=== PATIENT | male | born 1960 | race Caucasian/White ===

== ENCOUNTER 2018-10-05 05:57 | Emergency (ER) | payer MEDICAID ==
[2018-10-05 06:12] VITALS: PULSE 70
--- NOTE | 2018-10-05 06:22 | ERPHSYRPT ---
- History of Present Illness Source: patient Exam Limitations: no limitations Patient Subjective Stated Complaint: pt is alert and oriented. pt is ambulatory with an unsteady gait. pt states that the he has had some left sided hip/lower back/buttock pain. pt denies injury. pt has a small scab over area but no discoloration, swelling, or redness noted. pt states since approx 3 weeks ago he has festus having lt lower back pain radiating down lt leg, increasing and today making it difficult to ambulate Triage Nursing Assessment: pt is alert and oriented. pt is ambulatory with an unsteady gait. pt states that the he has had some left sided hip/lower back/ buttock pain. pt denies injury. pt has a small scab over area but no discoloration, swelling, or redness noted. Timing/Duration: week(s) (3) Context: bending, lifting, twisted, turning Quality: sharpness, stabbing Hip Pain Location: hip (L) Severity of Pain-Max: moderate Severity of Pain-Current: moderate Modifying Factors: Improves With: movement Symptoms prior to fall: none Associated Symptoms: pain radiating to knees Hx Tetanus, Diphtheria Vaccination/Date Given: Yes Hx Influenza Vaccination/Date Given: No Hx Pneumococcal Vaccination/Date Given: No Immunizations Up to Date: Yes <AYDEN GRANADOS - Last Filed: 10/05/18 06:17> <TESS BENSON - Last Filed: 10/05/18 07:54> - History of Present Illness Time Seen by Provider: 10/05/18 06:17 Physician History: 58 y/o morbidly obese white male with h/o mi, cadz, defibrillator/pacemaker, lymphedema and chf presents with 3 week h/o worsening low back pain, left hip pain with radiation down left buttock to left knee posteriorly. rx for neurontin not filled because no money. pt states dr. sher was going to order xrays at next visit but his pain worse. (AYDEN GRANADOS) Allergies/Adverse Reactions: Sulfa (Sulfonamide Antibiotics) Allergy (Verified 10/05/18 06:12) Rash Home Medications: Allopurinol 100 mg [Zyloprim 100 mg] 100 mg PO DAILY 10/05/18 [History] Apixaban [Eliquis] 5 mg PO BID 10/05/18 [History] Aspirin 81 gm Chew [Baby Aspirin 81 mg Chew] 81 mg PO DAILY 10/05/18 [ History] Atorvastatin Calcium [Lipitor] 40 mg PO HS 10/05/18 [History] Metoprolol Succinate 100 mg [Toprol Xl 100 MG] 100 mg PO BID 10/05/18 [ History] Multivitamin W-Minerals/Lutein [Centrum Silver Tablet] 1 each PO DAILY 10/05/18 [History] Sacubitril/Valsartan [Entresto 24 mg-26 mg Tablet] 1 each PO BID 10/05/18 [ History] - Review of Systems Constitutional: No Symptoms Eyes: No Symptoms Ears, Nose, & Throat: No Symptoms Respiratory: No Symptoms Cardiac: No Symptoms Abdominal/Gastrointestinal: No Symptoms Genitourinary Symptoms: No Symptoms Musculoskeletal: Back Pain, Joint Pain (left hip) Skin: No Symptoms Neurological: No Symptoms Psychological: No Symptoms Endocrine: No Symptoms Hematologic/Lymphatic: No Symptoms Immunological/Allergic: No Symptoms All Other Systems: Reviewed and Negative <AYDEN GRANADOS - Last Filed: 10/05/18 06:17> - Past Medical History Pertinent Past Medical History: Yes Cardiac History: Arrhythmia, Congestive Heart Failure, Myocardial Infarction ([place] ) Respiratory History: CHF History: Renal Disease Other Medical History: a fib, lymphedema in bilat legs, moderate kidney function - hx of acute renal failure - Past Surgical History Past Surgical History: Yes Cardiac: Internal Defibrillator, Pacemaker Gastrointestinal: Cholecystectomy Other Surgical History: dialysis port placement and removal - Social History Smoking Status: Former smoker Exposure to second hand smoke: No Drug Use: none Patient Lives Alone: Yes <AYDEN GRANADOS - Last Filed: 10/05/18 06:17> - Physical Exam General Appearance: mild distress, alert, anxiety Eye Exam: PERRL/EOMI, eyes nml inspection Ears, Nose, Throat Exam: normal ENT inspection, moist mucous membranes Neck Exam: normal inspection, non-tender, supple, full range of motion Respiratory Exam: No chest tenderness Rectal Exam: not done Back Exam: decreased range of motion, muscle spasm, No CVA tenderness, No vertebral tenderness Extremity Exam: other (chronic bilat lower lymphedema and venous stasis dz) Neurologic Exam: alert, oriented x 3, cooperative, water proofer II-XII nml as tested Skin Exam: normal color, warm Lymphatic Exam: No adenopathy SpO2 Interpretation: normal SpO2: 96 O2 Delivery: Room Air <AYDEN GRANADOS - Last Filed: 10/05/18 06:17> - Nursing Vital Signs Nursing Vital Signs: Initial Vital Signs Temperature 97.6 F 10/05/18 05:58 Pulse Rate 70 10/05/18 05:58 Respiratory Rate 22 10/05/18 05:58 Blood Pressure 116/81 10/05/18 05:58 O2 Sat by Pulse Oximetry 96 10/05/18 05:58 Pain Scale Pain Intensity [Left Lower 10 Back] Pain Intensity 10 - CT Exams Lumbar Spine CT Interpretation: Discussed w/radiologist (NEGATIVE FOR FRACTURE, MILD L3-S1,S- I JOINT DEGENERATIVE CHANGES, TINY BILATERAL BILATERAL SUPERIOR ACETABULAR SPURRING) Pelvis CT Interpretation: Discussed w/radiologist (NO FRACTURE OR DISLOCATION) <TESS BENSON - Last Filed: 10/05/18 07:54> Ordered Tests: Active Orders 24 hr Category Date Time Status LUMBAR SPINE W/O [CT] Stat Exams 10/05/18 06:51 Taken PELVIS WITHOUT CONTRAST [CT] Stat Exams 10/05/18 06:38 Taken Transfer Order Routine Transfer 10/05/18 Ordered Medication Summary Discontinued Medications Generic Name Dose Route Start Last Admin Trade Name Freq PRN Reason Stop Dose Admin Orphenadrine Citrate 60 mg 10/05/18 07:21 Norflex 60 Mg/2 Ml IM 10/05/18 07:22 STAT ONE <AYDEN GRANADOS - Last Filed: 10/05/18 06:17> - Progress Progress: pain not gone completely Counseled pt/family regarding: diagnosis, need for follow-up <TESS BENSON - Last Filed: 10/05/18 07:54> - Progress Progress Note: 10/05/18 06:24 pt is transferred to dr. benson. i reviewed pt hx, condition and xrays to be followed up on. he accepts pt for transfer of care. (AYDEN GRANADOS) PHYSICAL EXAM: CHEST-CLEAR BREATH SOUNDS HEART-NORMAL S1 S2. RHYTHM REGULAR, NO MURMUR BACK: LEFT LUMBAR PARASPINAL TENDERNESS, L3-L5, MODERATE LEFT SACROILIAC TENDERNESS, TENDERNESS OVER LEFT GROIN 10/05/18 07:17, ADMINISTERED NORFLEX 60MG IM, PATIENT TOOK MOTRIN 800MG PRIOR TO ARRIVAL 10/05/18 07:22 (TESS BENSON) <AYDEN GRANADOS - Last Filed: 10/05/18 06:17> - Departure Departure Disposition: Home Critical Care Time: No <TESS BENSON - Last Filed: 10/05/18 07:54> - Departure Clinical Impression: Chronic low back pain with left-sided sciatica, DEGENERATIVE DISC DISEASE Condition: Stable Referrals: TONE CHEEK MD [Primary Care Provider] - Additional Instructions: AMBULATE USING WALKER ASSISTANCE, NONWEIGHT BEARING LEFT LOWER EXTREMITY. ULTRAM 50MG EVERY 6 HOURS FOR PAIN. CONSULT YOUR PRIMARY CARE PROVIDER FOR EVALUATION, PAIN MANAGEMENT AND PHYSICAL THERAPY. NORFLEX 100MG TWICE DAILY FOR 5 DAYS FOR MUSCLE SPASM. Prescriptions: Tramadol HCl 50 mg [Ultram 50 mg] 50 mg PO Q6HPRN PRN #16 tablet PRN Reason: Pain Orphenadrine Citrate 100 mg [Norflex 100 MG Tablet] 100 mg PO BID #10 tab
[2018-10-05] MEDS ORDERED: Norflex 60 MG/2 ML IM ONE (07:21)
[2018-10-05] MEDS ORDERED: Norflex 60 MG/2 ML ONE (07:23)
[2018-10-05 07:57] VITALS: BP 111/89; O2SAT 93
--- NOTE | 2018-10-05 09:39 | XRAY ---
Indication: Pain following fall 2 weeks ago. Multiple contiguous axial images obtained through the lumbar spine. Sagittal and coronal reformatted images obtained. Comparison: None Axial images negative for acute fracture, suspicious bony lesions, or spinal canal stenosis. Mild T11-T12 endplate spurring, mild L3-S1 broad-based disc bulge, and L5-S1 vacuum disc phenomena. Additional degenerative changes seen of both SI joints. Sagittal and coronal reformatted images demonstrates normal lumbar alignment with vertebral body heights and disc spaces maintained. No acute compression fracture or subluxation. Visualized noncontrasted soft tissues demonstrates mild diffuse scattered colonic fecal stasis, mild descending/sigmoid diverticulosis, cholecystectomy clips, and minimal scattered vascular calcifications. Impression: 1. Negative for acute fracture/subluxation. 2. Multilevel thoracolumbar and SI joint degenerative changes. 3. Incidental fecal stasis and colonic diverticulosis. CTDI 76.92
--- NOTE | 2018-10-05 09:44 | XRAY ---
Indication: Pain following fall 2 weeks ago. Multiple contiguous axial images obtained through the pelvis with special attention to the osseous structures. Sagittal and coronal reformatted images obtained. Comparison: None No acute fracture, dislocation, or suspicious bony lesions. There are degenerative changes of the visualized lower lumbar spine and both SI joints reported on CT lumbar spine of the same day. Visualized noncontrasted soft tissues demonstrates prominent bilateral inguinal lymph nodes, largest on the left measuring 2.1 x 4.9 cm presumed reactive. Also mild sigmoid diverticulosis and minimal scattered vascular calcifications. Impression: 1. Negative for acute fracture/dislocation. 2. Prominent bilateral inguinal lymph nodes presumed reactive. Malignancy not completely excluded in the right clinical setting. 3. Incidental colonic diverticulosis. CTDI 69.00
== END 2018-10-05 08:09 | disposition home or self-care (01) ==
LOC: ED 05:57
DX: M54.42 Lumbago with sciatica, left side (principal); G89.29 Other chronic pain; M51.36 Other intervertebral disc degeneration, lumbar region; I50.9 Heart failure, unspecified; I25.2 Old myocardial infarction; N28.9 Disorder of kidney and ureter, unspecified; Z95.810 Presence of automatic (implantable) cardiac defibrillator; Z79.899 Other long term (current) drug therapy
CPT/HCPCS: 72131; 72192; 96372; 99284; J2360

== ENCOUNTER 2019-05-17 13:59 | Emergency (ER) | payer MEDICAID ==
--- NOTE | 2019-05-17 14:04 | ERPHSYRPT ---
- History of Present Illness Time Seen by Provider: 05/17/19 14:04 Source: patient, EMS Exam Limitations: no limitations Physician History: This is a morbidly obese 59-year-old male who complains of chronic left hip pain. He presents to the emergency room via EMS system because of worsening pain in the left hip over the last 2 to 3 days. Patient denies trauma or fall. He does not recall slipping. Patient states it is interfering with his ability to use his walker. Patient is taking gabapentin but no other medications for pain. Method of Injury: unknown Occurred: days ago (2-3) Quality: constant, aching Severity of Pain-Max: moderate Severity of Pain-Current: moderate Lower Extremities Pain: hip: left Modifying Factors: Improves With: movement, other (Standing worsens) Associated Symptoms: none Allergies/Adverse Reactions: Sulfa (Sulfonamide Antibiotics) Allergy (Verified 05/17/19 14:09) Rash Home Medications: Apixaban [Eliquis] 5 mg PO BID 10/05/18 [History] Aspirin 81 gm Chew [Baby Aspirin 81 mg Chew] 81 mg PO DAILY 10/05/18 [ History] Atorvastatin Calcium [Lipitor] 40 mg PO HS 10/05/18 [History] Metoprolol Succinate 100 mg [Toprol Xl 100 MG] 100 mg PO BID 10/05/18 [ History] Multivitamin W-Minerals/Lutein [Centrum Silver Tablet] 1 each PO DAILY 10/05/18 [History] Sacubitril/Valsartan [Entresto 24 mg-26 mg Tablet] 1 each PO BID 10/05/18 [ History] Gabapentin 300 mg PO QID 05/17/19 [History] Potassium Chloride 10 Meq Tab* [Klor Con 10 MEQ] 10 meq PO DAILY 05/17/19 [ History] Hx Tetanus, Diphtheria Vaccination/Date Given: Yes Hx Influenza Vaccination/Date Given: No Hx Pneumococcal Vaccination/Date Given: No - Review of Systems Constitutional: No Symptoms Eyes: No Symptoms Ears, Nose, & Throat: No Symptoms Respiratory: No Symptoms Cardiac: No Symptoms Abdominal/Gastrointestinal: No Symptoms Genitourinary Symptoms: No Symptoms Musculoskeletal: Other (Left hip pain without injury or trauma) Skin: No Symptoms Neurological: No Symptoms Psychological: No Symptoms Endocrine: No Symptoms Hematologic/Lymphatic: No Symptoms Immunological/Allergic: No Symptoms All Other Systems: Reviewed and Negative - Past Medical History Pertinent Past Medical History: Yes Neurological History: No Pertinent History ENT History: No Pertinent History Cardiac History: Arrhythmia, Congestive Heart Failure, Myocardial Infarction ([place] ) Respiratory History: CHF Endocrine Medical History: No Pertinent History Musculoskeletal History: No Pertinent History GI Medical History: No Pertinent History History: Renal Disease Psycho-Social History: No Pertinent History Male Reproductive Disorders: No Pertinent History Other Medical History: a fib, lymphedema in bilat legs, moderate kidney function - hx of acute renal failure - Past Surgical History Past Surgical History: Yes Cardiac: Internal Defibrillator, Pacemaker Gastrointestinal: Cholecystectomy Genitourinary: No Pertinent History Musculoskeletal: No Pertinent History Male Surgical History: No Pertinent History Other Surgical History: dialysis port placement and removal - Social History Smoking Status: Former smoker Exposure to second hand smoke: No Drug Use: none Patient Lives Alone: Yes - Nursing Vital Signs Nursing Vital Signs: Initial Vital Signs Temperature 97.8 F 05/17/19 14:00 Pulse Rate 71 05/17/19 14:00 Respiratory Rate 22 05/17/19 14:00 Blood Pressure 112/76 05/17/19 14:00 O2 Sat by Pulse Oximetry 96 05/17/19 14:00 Pain Scale Pain Intensity 8 - Physical Exam General Appearance: no apparent distress, alert, anxiety, obese Eyes, Ears, Nose, Throat Exam: normal ENT inspection, moist mucous membranes Neck Exam: normal inspection, non-tender, supple, full range of motion Cardiovascular/Respiratory Exam: No chest non-tender Gastrointestinal/Abdominal Exam: No non-tender Back Exam: normal inspection, normal range of motion, No CVA tenderness, No vertebral tenderness Hips Exam: right: non-tender, left: normal inspection, normal range of motion, no evidence of injury, pain Legs Exam: bilateral leg: non-tender, normal inspection, normal range of motion , no evidence of injury Knees Exam: bilateral knee: non-tender, normal inspection, normal range of motion, no evidence of injury Ankle Exam: bilateral ankle: non-tender, normal inspection, normal range of motion, no evidence of injury Foot Exam: bilateral foot: non-tender, normal inspection, normal range of motion , no evidence of injury Neuro/Tendon Exam: normal sensation, normal motor functions Mental Status Exam: alert, oriented x 3, cooperative Skin Exam: normal color, warm, dry SpO2 Interpretation: normal O2 Delivery: Room Air - Course Nursing assessment & vital signs reviewed: Yes Ordered Tests: Active Orders 24 hr Category Date Time Status HIP UNI (2V) INCL PEL IF DONE Stat Exams 05/17/19 14:17 Completed - Progress Progress: pain not gone completely, re-examined Progress Note: 05/17/19 15:30 The x-ray of the pelvis and left hip reveals no acute fracture or dislocation Counseled pt/family regarding: diagnosis, need for follow-up, rad results - Departure Departure Disposition: Home Clinical Impression: Left hip pain Condition: Stable Critical Care Time: No Referrals: VICKI ARBOLEDA DO [Primary Care Provider] - Additional Instructions: Take your medication as prescribed. Follow-up with Dr. Ha's office on Monday by phone to make arrangements for an appointment. Monitor your blood sugar closely while taking the steroid. Prescriptions: Oxycodone HCl/Acetaminophen [Percocet 5-325 mg Tablet] 1 each PO Q8H PRN PRN #6 tablet MDD 3 PRN Reason: Pain Prednisone 10 mg [Deltasone 10 mg] 10 mg PO BID #6 tablet
--- NOTE | 2019-05-17 15:26 | XRAY ---
Exam: Left hip films including AP film of the pelvis from 05/17/2019. Comparison: CT of the pelvis without IV contrast from 10/05/2018. Indication: Morbidly obese 59-year-old male complains of pain. Findings: AP film of the pelvis and coned-down AP and frog-leg lateral views of the left hip were obtained. I see no acute fracture or dislocation of the left hip. The hip joint spaces are fairly well-maintained bilaterally. Mild hypertrophic degenerative change is seen at the inferior medial margin of each pubic bone. Incidentally, there is mild diastasis of the symphysis pubis which measures 12.3 mm across. In retrospect, this is similar to the CT study from 10/05/2018 when it measured about 10.5 mm across on coronal image #81. Mild degenerative changes are seen at the inferior aspect of both sacroiliac joints. No bone destruction is seen. Impression: 1. I see no acute fracture or dislocation of the left hip or pelvis. 2. Mild degenerative changes are seen within the inferior aspect of both sacroiliac joints. 3. Mild diastasis of the symphysis pubis. No erosive changes are seen. In retrospect, I believe this is similar to the CT study of the pelvis from 10/05/2018.
[2019-05-17] MEDS ORDERED: PERCOCET TABLET 5/325MG PO STA (15:39)
[2019-05-17] MEDS ORDERED: PERCOCET TABLET 5/325MG ONE (15:43)
[2019-05-17] MEDS ORDERED: DELTASONE 20 MG ONE (15:43)
[2019-05-17 16:12] VITALS: BP 112/69; PULSE 74; O2SAT 96
[2019-05-18] MEDS ORDERED: DELTASONE 20 MG PO SCH (15:39)
== END 2019-05-17 16:41 | disposition home or self-care (01) ==
LOC: ED 13:59
DX: M25.552 Pain in left hip (principal)
CPT/HCPCS: 73502; 99284; A9270-GY

== ENCOUNTER 2021-10-21 14:19 | Inpatient (IN) | payer OTHER ==
[2021-10-21] MEDS ORDERED: DUONEB 0.5-3 MG/3 ml Neb IH ONE ×2 (14:41→15:51)
[2021-10-21 15:21] LABS: Absolute Neutrophil Ct (ANC) 1.66 x10^3/uL (1.4-6.9); Basophil (Absolute #) 0.01 x10^3/uL (0-0.4); Eosinophil (Absolute #) 0.05 x10^3/uL (0-0.5); Hematocrit 42.2 % (42-50); Hemoglobin 13.2 g/dL (12.5-18.0); Lymphocyte (Absolute #) 0.43 x10^3/uL (1.0-4.6); Lymphocytes % 17.4 % (24.0-44.0); Mean Cell Volume 98.4 fL (78-100); Mean Corpuscular Hemoglobin 30.8 pg (26-32); Mean Corpuscular Hgb Concent. 31.3 g/dL (32-36); Mean Platelet Volume 10.9 fL (7.5-11.0); Monocyte (Absolute #) 0.32 x10^3/uL (0.0-1.3); Neutrophil % 67.2 % (36.0-66.0); Platelet Count 107 x10^3/uL (150-450); Red Blood Count 4.29 x10^6/uL (4.1-5.6); Red Cell Distribution Width 15.1 % (11.5-14.0); White Blood Count 2.5 x10^3/uL (4.0-10.5)
[2021-10-21 15:42] LABS: ALBUMIN 3.4 g/dL (3.5-5.0); ANION GAP 14.6 MEQ/L (5-15); BILIRUBIN,TOTAL 0.7 mg/dL (0.2-1.3); Creatinine 1 1.69 mg/dL (0.66-1.25); EST GLOMERULAR FILTRATION RATE 44.1 ML/MIN; Potassium 4.9 mmol/L (3.5-5.1); Total Protein 7.4 g/dL (6.3-8.2)
--- NOTE | 2021-10-21 16:18 | XRAY ---
Exam: AP 80 semiupright portable chest film from 10/21/2021. Comparison: Two-view chest film series from 08/20/2020. Indication: Hypertensive heart disease; possible pneumonia; chest pain. Findings: The heart size does not appear enlarged. Slight tortuosity of the descending thoracic aorta is seen. Left-sided cardiac pacemaker with dual transvenous leads are again seen in place. The lungs are adequately expanded. No definite air space infiltrates, perihilar vascular congestion, pneumothorax, or pleural fluid is seen. No acute osseous process is seen. Impression: 1. No air space infiltrates to suggest pneumonia or other acute cardiopulmonary disease is seen. 2. Left-sided cardiac pacemaker is again seen with [address]
--- NOTE | 2021-10-21 16:34 | ERPHSYRPT ---
- History of Present Illness Time Seen by Provider: 10/21/21 14:41 Historian: patient, EMS Exam Limitations: no limitations Patient Subjective Stated Complaint: pt here from drs office for chest for 3-4 days now, with cough, sob, dizziness, and loose stools Triage Nursing Assessment: pt alert, resp labored wtih movement , face mask in place, skin w/d/p. no cough at present time Physician History: 61-year-old morbidly obese male with history of atrial fibrillation status post pacemaker placement, on Eliquis, hypertension, hyperlipidemia, chronic lower extremity swelling/lymphedema, diabetes mellitus presented in the ER from primary care office via EMS with 3 to 4 days history of off-and-on substernal chest pain which is more with exertion and no significant relieving factors. Patient received full dose aspirin and nitro prior to arrival by EMS and started to feel better. Has systolic blood pressure in mid 80s on presentation. No fever or chills but generalized weakness fatigue and tiredness. Timing/Duration: day(s) (3), intermittent, gradual onset, worse Activities at Onset: activity, rest Quality: dullness Location: substernal, central Chest Pain Radiation: no radiation Severity of Pain-Max: moderate Severity of Pain-Current: mild Modifying Factors: Improves With: exertion Associated Symptoms: shortness of breath, cough, dizziness Nitro Today/Relief: 0.4 mg x 1 Aspirin Treatment Today: 81 mg x 4 Allergies/Adverse Reactions: daptomycin Allergy (Verified 10/21/21 19:23) Sulfa (Sulfonamide Antibiotics) Allergy (Verified 10/21/21 14:32) Rash Home Medications: Apixaban [Eliquis] 5 mg PO BID 10/05/18 [History] Atorvastatin Calcium [Lipitor] 40 mg PO DAILY 10/05/18 [History] Multivitamin W-Minerals/Lutein [Centrum Silver Tablet] 1 each PO DAILY 10/05/18 [History] Potassium Chloride Tab* [Klor Con 10 MEQ] 20 meq PO DAILY 05/17/19 [History] Empagliflozin [Jardiance] 25 mg PO DAILY 10/21/21 [History] Gabapentin [Neurontin ] 800 mg PO QHS 10/21/21 [History] Glimepiride 1 mg PO DAILY 10/21/21 [History] Magnesium Oxide 400 mg [Mag-Ox 400] 400 mg PO BID 10/21/21 [History] Metformin HCl 500 mg [Glucophage 500 MG] 500 mg PO DAILY 10/21/21 [History] Metoprolol Succinate 25 mg Xl* [Toprol-Xl 25MG Tablets] 25 mg PO BID 10/21/21 [History] Metoprolol Succinate 50 mg [Toprol Xl 50 MG] 50 mg PO BID 10/21/21 [History] Sacubitril/Valsartan [Entresto 49 mg-51 mg Tablet] 1 each PO BID 10/21/21 [History] Torsemide 100 mg PO BID 10/21/21 [History] Hx Tetanus, Diphtheria Vaccination/Date Given: Yes Hx Influenza Vaccination/Date Given: Yes Hx Pneumococcal Vaccination/Date Given: Yes Immunizations Up to Date: Yes Travel Risk - International Travel Have you traveled outside of the country in past 3 weeks: No - Coronavirus Screening Are you exhibiting any of the following symptoms?: Yes Symptoms: Cough: New Onset, Shortness of Breath, Vomiting/Diarrhea - Vaccine Status Have you recieved a Covid-19 vaccination: No - Review of Systems Constitutional: Fatigue, Weakness Eyes: No Symptoms Ears, Nose, & Throat: No Symptoms Respiratory: Cough, Dyspnea, Dyspnea on Exertion ([place]) Cardiac: Chest Pain, Edema Abdominal/Gastrointestinal: Diarrhea Genitourinary Symptoms: No Symptoms Musculoskeletal: Myalgias Skin: No Symptoms Neurological: Dizziness Psychological: No Symptoms Endocrine: No Symptoms Hematologic/Lymphatic: No Symptoms Immunological/Allergic: No Symptoms - Past Medical History Pertinent Past Medical History: Yes Neurological History: No Pertinent History ENT History: No Pertinent History Cardiac History: Congestive Heart Failure, High Cholesterol, Hypertension, Myocardial Infarction ([place]), Peripheral Vascular Disease, Other Respiratory History: Asthma, Sleep Apnea Endocrine Medical History: Diabetes Type II Musculoskeletal History: Osteoarthritis GI Medical History: No Pertinent History History: Renal Disease Psycho-Social History: No Pertinent History Male Reproductive Disorders: No Pertinent History Other Medical History: USES 2L O2 WITH CPAP AND OCCASIONALLY DURING THE DAY. HAS RESCUE INHALER. LYMPHEDEMA. HAS DEFIB/PACEMAKER WITH MOST RECENT PLACEMENT 03/07 - Past Surgical History Past Surgical History: Yes Cardiac: Internal Defibrillator, Pacemaker Gastrointestinal: Cholecystectomy Genitourinary: No Pertinent History Musculoskeletal: No Pertinent History Male Surgical History: No Pertinent History Other Surgical History: dialysis port placement and removal - Social History Smoking Status: Former smoker Exposure to second hand smoke: No Drug Use: none Patient Lives Alone: Yes - Nursing Vital Signs Nursing Vital Signs: Initial Vital Signs Temperature 97.7 F 10/21/21 14:29 Pulse Rate 76 10/21/21 14:29 Respiratory Rate 28 H 10/21/21 14:29 Blood Pressure 79/58 10/21/21 14:29 O2 Sat by Pulse Oximetry 97 10/21/21 14:29 Pain Scale Pain Intensity 5 - Physical Exam General Appearance: no apparent distress, alert Eye Exam: PERRL/EOMI Ears, Nose, Throat Exam: normal ENT inspection, TMs normal, pharynx normal, moist mucous membranes Neck Exam: normal inspection, full range of motion Respiratory Exam: diminished breath sounds (Possibly secondary to body habitus), No wheezing Cardiovascular Exam: No normal heart sounds Gastrointestinal/Abdomen Exam: soft, normal bowel sounds, No tenderness Back Exam: normal inspection, normal range of motion Extremity Exam: swelling, other (Lymphedema) Neurologic Exam: alert, oriented x 3, cooperative, 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, normal mood/affect, sensation nml Skin Exam: normal color SpO2 Interpretation: O2 applied SpO2: 100 O2 Delivery: Nasal Cannula (2 L) - Course EKG Interpreted by Me: RATE (99), NORMAL AXIS, prolonged QT interval, Other (PVC, paced rhythm) Ordered Tests: Active Orders 24 hr Category Date Time Status Bedrest ROUTINE Activity 10/21/21 18:34 Active Up With Assistance ROUTINE Activity 10/21/21 18:34 Active Call Admit Doctor for Orders ON ADMISSION Care 10/21/21 18:34 Active Code Status Order ROUTINE Care 10/21/21 18:34 Active EKG-ER Only STAT Care 10/21/21 14:41 Completed Fall Protocol Q1H Care 10/21/21 18:34 Active IV Care Q6H Care 10/21/21 18:34 Active IV Insertion STAT Care 10/21/21 14:41 Completed POCT Glucose Check ACHS Care 10/21/21 18:[address] in Observation ROUTINE Care 10/21/21 18:34 Active Magen Hose, Apply ROUTINE Care 10/21/21 18:34 Active Weight,Daily 0600 Care 10/21/21 18:34 Active Consistent Carbohydrate Diet 1800 Calorie Diet 10/21/21 Breakfast Active CHEST 1 VIEW (PORTABLE) Stat Exams 10/21/21 14:41 Completed BLOOD CULTURE Stat Lab 10/21/21 15:10 Received CBC W DIFF AM.LAB Lab 10/22/21 04:00 Ordered CBC W DIFF Stat Lab 10/21/21 15:10 Completed CMP AM.LAB Lab 10/22/21 04:00 Ordered CMP Stat Lab 10/21/21 15:10 Completed Lactic Acid Stat Lab 10/21/21 14:41 Completed Lactic Acid Stat Lab 10/21/21 18:01 Received MAGNESIUM Stat Lab 10/21/21 15:10 Completed NT PRO BNP Stat Lab 10/21/21 15:10 Completed PROCALCITONIN Stat Lab 10/21/21 18:25 Completed TROPONIN Q4H Lab 10/21/21 15:10 Completed TROPONIN Q4H Lab 10/21/21 18:25 Completed TROPONIN Q4H Lab 10/21/21 23:00 Received UA W/RFX CULTURE Stat Lab 10/21/21 Ordered Oxygen Nasal Cannula 2 lpm RT 10/21/21 18:34 Active Respiratory Therapy Assessment DAILY RT 10/21/21 15:55 Completed Transfer Order Routine Transfer 10/21/21 Completed Medication Summary Generic Name Dose Route Start Last Admin Trade Name Freq PRN Reason Stop Dose Admin Acetaminophen 650 mg 10/21/21 18:34 Acetaminophen 325 Mg Tablet PO 11/20/21 18:33 Q4H PRN PRN PAIN AND/OR FEVER Albuterol Sulfate 4 puff 10/21/21 19:00 10/21/21 20:10 Albuterol Common Canister Inhaler IH 11/20/21 18:59 4 puff Q6HRT PRASAD Administration Apixaban 5 mg 10/21/21 22:22 10/21/21 22:47 Apixaban 2.5 Mg Tablet PO 11/20/21 21:59 5 mg BID PRASAD Administration Dexamethasone Sodium Phosphate 6 mg 10/22/21 10:00 Dexamethasone Sod Phosphate 10 Mg/Ml IV 11/21/21 09:59 DAILY PRASAD Gabapentin 800 mg 10/21/21 22:00 10/21/21 22:47 Gabapentin 300 Mg Capsule PO 11/20/21 21:59 800 mg QHS PRASAD Administration Remdesivir 100 mg/ Sodium 100 mls @ 100 mls/hr 10/21/21 18:34 Chloride IV 10/24/21 19:33 Q24H PRASAD Insulin Human Lispro 0 unit 10/21/21 18:34 Insulin Lispro 1 Unit SQ 11/20/21 18:33 UD PRN HYPERGLYCEMIA Magnesium Oxide 400 mg 10/21/21 22:00 10/21/21 22:46 Magnesium Oxide 400 Mg Tablet PO 11/20/21 21:59 400 mg BID PRASAD Administration Morphine Sulfate 2 mg 10/21/21 18:34 Morphine Sulfate 2 Mg/Ml Inj IV 10/26/21 18:33 Q4H PRN PRN PAIN Ondansetron HCl 4 mg 10/21/21 18:34 Ondansetron Hcl 4 Mg/2 Ml Vial IV 11/20/21 18:33 Q6H PRN PRN NAUSEA/VOMITING Pantoprazole Sodium 40 mg 10/22/21 10:00 Pantoprazole 40 Mg Vial IV 11/21/21 09:59 Q24H10 PRASAD Sacubitril/Valsartan 1 tablet 10/21/21 22:00 10/21/21 22:48 Sacubitril/Valsartan 1 Tablet Tablet PO 11/20/21 21:59 1 tablet BID [facility] Administration Discontinued Medications Generic Name Dose Route Start Last Admin Trade Name Freq PRN Reason Stop Dose Admin Albuterol/Ipratropium 3 ml 10/21/21 14:41 10/21/21 15:54 Ipratropium/Albuterol Sulfate 3 Ml Ampul.Neb 10/21/21 14:42 3 ml STAT ONE Administration Albuterol/Ipratropium Confirm 10/21/21 15:51 Ipratropium/Albuterol Sulfate 3 Ml Ampul.Neb Administered 10/21/21 15:52 Dose 3 ml IH .STK-MED ONE Albuterol/Ipratropium 3 ml 10/21/21 19:00 Ipratropium/Albuterol Sulfate 3 Ml Ampul.Neb 11/20/21 18:59 Q6HRT PRASAD Apixaban 5 mg 10/22/21 10:00 Apixaban 2.5 Mg Tablet PO 11/21/21 09:59 BID [facility] Dexamethasone Sodium Phosphate 6 mg 10/21/21 17:35 10/21/21 20:37 Dexamethasone Sod Phosphate 10 Mg/Ml IV 10/21/21 17:36 6 mg STAT ONE Administration Dexamethasone Sodium Phosphate Confirm 10/21/21 20:14 Dexamethasone Sod Phosphate 4 Mg/Ml Ml Administered 10/21/21 20:15 Dose 8 mg .ROUTE .STK-MED ONE Gabapentin Confirm 10/21/21 22:38 Gabapentin 400 Mg Capsule Administered 10/21/21 22:39 Dose 800 mg .ROUTE .STK-MED ONE Remdesivir 200 mg/ Sodium 250 mls @ 125 mls/hr 10/21/21 17:35 10/21/21 20:38 Chloride IV 10/21/21 19:34 125 mls/hr ONCE ONE Administration Lab/Rad Data: Laboratory Result Diagrams 10/21/21 15:10 10/21/21 15:10 Laboratory Results 10/21/21 10/21/21 10/21/21 Range/Units 18:25 18:25 16:30 WBC (4.0-10.5) x10^3/uL RBC (4.1-5.6) x10^6/uL Hgb (12.5-18.0) g/dL Hct (42-50) % MCV (78-100) fL MCH (26-32) pg MCHC (32-36) g/dL RDW (11.5-14.0) % Plt Count (150-450) x10^3/uL MPV (7.5-11.0) fL Gran % (36.0-66.0) % Immature Gran % (Auto) (0.00-0.4) % Nucleat RBC Rel Count (0.00-0.1) % Eos # (Auto) (0-0.5) x10^3/uL Immature Gran # (Auto) (0.00-0.03) x10^3u/L Absolute Lymphs (auto) (1.0-4.6) x10^3/uL Absolute Monos (auto) (0.0-1.3) x10^3/uL Absolute Nucleated RBC (0.00-0.01) x10^3u/L Lymphocytes % (24.0-44.0) % Monocytes % (0.0-12.0) % Eosinophils % (0.00-5.0) % Basophils % (0.0-0.4) % Absolute Granulocytes (1.4-6.9) x10^3/uL Basophils # (0-0.4) x10^3/uL Sodium (137-145) mmol/L Potassium (3.5-5.1) mmol/L Chloride (98-107) mmol/L Carbon Dioxide (22-30) mmol/L Anion Gap (5-15) MEQ/L BUN (9-20) mg/dL Creatinine (0.66-1.25) mg/dL Estimated GFR ML/MIN Glucose (74-106) mg/dL Lactic Acid (0.4-2.0) Calcium (8.4-10.2) mg/dL Magnesium (1.6-2.3) mg/dL Total Bilirubin (0.2-1.3) mg/dL AST (17-59) U/L ALT (0-50) U/L Alkaline Phosphatase (38-126) U/L Troponin I 0.024 (0.000-0.034) ng/mL NT-Pro-B Natriuret Pep (0-900) pg/mL Serum Total Protein (6.3-8.2) g/dL Albumin (3.5-5.0) g/dL Procalcitonin 0.151 H (0.030-0.080) ng/mL Influenza Type A Ag NEGATIVE (NEGATIVE) Influenza Type B Ag NEGATIVE (NEGATIVE) RSV (PCR) NEGATIVE (Negative) SARS-CoV-2 (PCR) POSITIVE A (NEGATIVE) 10/21/21 10/21/21 10/21/21 Range/Units 15:10 15:10 15:10 WBC 2.5 L (4.0-10.5) x10^3/uL RBC 4.29 (4.1-5.6) x10^6/uL Hgb 13.2 (12.5-18.0) g/dL Hct 42.2 (42-50) % MCV 98.4 (78-100) fL MCH 30.8 (26-32) pg MCHC 31.3 L (32-36) g/dL RDW 15.1 H (11.5-14.0) % Plt Count 107 L (150-450) x10^3/uL MPV 10.9 (7.5-11.0) fL Gran % 67.2 H (36.0-66.0) % Immature Gran % (Auto) 0.0 (0.00-0.4) % Nucleat RBC Rel Count 0.0 (0.00-0.1) % Eos # (Auto) 0.05 (0-0.5) x10^3/uL Immature Gran # (Auto) 0.00 (0.00-0.03) x10^3u/L Absolute Lymphs (auto) 0.43 L (1.0-4.6) x10^3/uL Absolute Monos (auto) 0.32 (0.0-1.3) x10^3/uL Absolute Nucleated RBC 0.00 (0.00-0.01) x10^3u/L Lymphocytes % 17.4 L (24.0-44.0) % Monocytes % 13.0 H (0.0-12.0) % Eosinophils % 2.0 (0.00-5.0) % Basophils % 0.4 (0.0-0.4) % Absolute Granulocytes 1.66 (1.4-6.9) x10^3/uL Basophils # 0.01 (0-0.4) x10^3/uL Sodium 135 L (137-145) mmol/L Potassium 4.9 (3.5-5.1) mmol/L Chloride 107 (98-107) mmol/L Carbon Dioxide 18 L (22-30) mmol/L Anion Gap 14.6 (5-15) MEQ/L BUN 23 H (9-20) mg/dL Creatinine 1.69 H (0.66-1.25) mg/dL Estimated GFR 44.1 ML/MIN Glucose 118 H (74-106) mg/dL Lactic Acid (0.4-2.0) Calcium 8.0 L (8.4-10.2) mg/dL Magnesium 2.0 (1.6-2.3) mg/dL Total Bilirubin 0.70 (0.2-1.3) mg/dL AST 37 (17-59) U/L ALT 20 (0-50) U/L Alkaline Phosphatase 78 (38-126) U/L Troponin I 0.030 (0.000-0.034) ng/mL NT-Pro-B Natriuret Pep 1270 H (0-900) pg/mL Serum Total Protein 7.4 (6.3-8.2) g/dL Albumin 3.4 L (3.5-5.0) g/dL Procalcitonin (0.030-0.080) ng/mL Influenza Type A Ag (NEGATIVE) Influenza Type B Ag (NEGATIVE) RSV (PCR) (Negative) SARS-CoV-2 (PCR) (NEGATIVE) 10/21/21 Range/Units 14:41 WBC (4.0-10.5) x10^3/uL RBC (4.1-5.6) x10^6/uL Hgb (12.5-18.0) g/dL Hct (42-50) % MCV (78-100) fL MCH (26-32) pg MCHC (32-36) g/dL RDW (11.5-14.0) % Plt Count (150-450) x10^3/uL MPV (7.5-11.0) fL Gran % (36.0-66.0) % Immature Gran % (Auto) (0.00-0.4) % Nucleat RBC Rel Count (0.00-0.1) % Eos # (Auto) (0-0.5) x10^3/uL Immature Gran # (Auto) (0.00-0.03) x10^3u/L Absolute Lymphs (auto) (1.0-4.6) x10^3/uL Absolute Monos (auto) (0.0-1.3) x10^3/uL Absolute Nucleated RBC (0.00-0.01) x10^3u/L Lymphocytes % (24.0-44.0) % Monocytes % (0.0-12.0) % Eosinophils % (0.00-5.0) % Basophils % (0.0-0.4) % Absolute Granulocytes (1.4-6.9) x10^3/uL Basophils # (0-0.4) x10^3/uL Sodium (137-145) mmol/L Potassium (3.5-5.1) mmol/L Chloride (98-107) mmol/L Carbon Dioxide (22-30) mmol/L Anion Gap (5-15) MEQ/L BUN (9-20) mg/dL Creatinine (0.66-1.25) mg/dL Estimated GFR ML/MIN Glucose (74-106) mg/dL Lactic Acid 2.0 (0.4-2.0) Calcium (8.4-10.2) mg/dL Magnesium (1.6-2.3) mg/dL Total Bilirubin (0.2-1.3) mg/dL AST (17-59) U/L ALT (0-50) U/L Alkaline Phosphatase (38-126) U/L Troponin I (0.000-0.034) ng/mL NT-Pro-B Natriuret Pep (0-900) pg/mL Serum Total Protein (6.3-8.2) g/dL Albumin (3.5-5.0) g/dL Procalcitonin (0.030-0.080) ng/mL Influenza Type A Ag (NEGATIVE) Influenza Type B Ag (NEGATIVE) RSV (PCR) (Negative) SARS-CoV-2 (PCR) (NEGATIVE) - Progress Progress: improved Air Movement: good Progress Note: 10/21/21 16:35 61-year-old is evaluated for intermittent chest pain for the last few days. EKG showed no ST elevation and paced rhythm. Negative initial troponin. Chest x- ray negative for any acute cardiopulmonary findings. Has low white count and platelets. COVID-19 is pending. Blood pressure improved to 105 systolic without any intervention. Patient is feeling better on reevaluation without any pain medication Discussed with Dr. Renae and patient is being admitted for observation for rule out ACS. 10/21/21 17:32 Patient has positive COVID-19. He is on 2 L oxygen which she normally uses at home. As per Dr. Renae recommendations he is started on Decadron and remdesivir. Blood Culture(s) Obtained: Yes Antibiotics given: No Discussed with : Chapin Will see patient in: hospital (observation) Counseled pt/family regarding: lab results, diagnosis, rad results - Departure Departure Disposition: Observation Clinical Impression: Chest pain, rule out acute myocardial infarction, COVID-19 virus detected Condition: Stable Critical Care Time: No
[2021-10-21 17:19] LABS: INFLUENZA A NEGATIVE (NEGATIVE); INFLUENZA B NEGATIVE (NEGATIVE); RESPIRATORY SYNCTIAL VIRUS NEGATIVE (Negative)
[2021-10-21 17:21] LABS: SARS-CoV-2 Xpert Express POSITIVE (NEGATIVE)
[2021-10-21] MEDS ORDERED: REMDESIVIR 200 MG in Sodium Chloride 0.9% 250 ML 250 ML IV ONE (17:35)
[2021-10-21] MEDS ORDERED: DECADRON 10MG INJ. IV ONE (17:35)
[2021-10-21] MEDS ORDERED: MORPHINE SULFATE 2 MG INJ IV PRN (18:34)
[2021-10-21] MEDS ORDERED: HUMALOG SQ PRN (18:34)
[2021-10-21] MEDS ORDERED: TYLENOL 325 MG PO PRN (18:34)
[2021-10-21] MEDS ORDERED: REMDESIVIR 100 MG in Sodium Chloride 100ML MINI-BAG PLUS 100 ML IV SCH (18:34)
[2021-10-21] MEDS ORDERED: Zofran 4 MG/2 ML VIAL IV PRN (18:34)
[2021-10-21] MEDS ORDERED: DUONEB 0.5-3 MG/3 ml Neb IH SCH (19:00)
[2021-10-21] MEDS: VENTOLIN COMMON CANISTER IH SCH (20:10)
[2021-10-21] MEDS ORDERED: Decadron 4 MG INJ ONE (20:14)
[2021-10-21] MEDS ORDERED: NEURONTIN PO SCH (22:00)
[2021-10-21] MEDS ORDERED: Neurontin ONE (22:38)
[2021-10-21] MEDS: MAG-OX 400 PO SCH (22:46)
[2021-10-21] MEDS: ELIQUIS 2.5 MG TABLET PO SCH (22:47)
[2021-10-21] MEDS: ENTRESTO 49 MG-51 MG TABLET PO SCH (22:48)
[2021-10-22] MEDS: VENTOLIN COMMON CANISTER IH SCH ×5 (00:45→23:32)
[2021-10-22 05:03] LABS: Hematocrit 42.9 % (42-50); Hemoglobin 13.7 g/dL (12.5-18.0); Mean Cell Volume 96.2 fL (78-100); Mean Corpuscular Hemoglobin 30.7 pg (26-32); Mean Corpuscular Hgb Concent. 31.9 g/dL (32-36); Platelet Count 107 x10^3/uL (150-450); Red Blood Count 4.46 x10^6/uL (4.1-5.6); Red Cell Distribution Width 15.2 % (11.5-14.0)
[2021-10-22 05:57] LABS: White Blood Count 1.6 x10^3/uL (4.0-10.5)
[2021-10-22 07:16] LABS: Bacteria RARE /HPF (NEGATIVE); Mucus SLIGHT /HPF (NEGATIVE)
[2021-10-22 07:20] LABS: Appearance SLIGHTLY CLOUDY (CLEAR); Bilirubin NEGATIVE (NEGATIVE); Dipstick done @ ? MAIN LAB; Glucose NEGATIVE (NEGATIVE); Ketones SMALL-15 (NEGATIVE); Nitrite POSITIVE (NEGATIVE); Ph 5.5 (5-6); Protein,Urine Dip 30 (Negative); RBC SMALL Ery/ul (0-5); Specific Gravity 1.025 (1.005-1.025); Urobilinogen 0.2 mg/dL (0-1)
[2021-10-22 07:22] LABS: Urine Cultured Indicated? YES
[2021-10-22 07:59] LABS: ALBUMIN 3.3 g/dL (3.5-5.0); ANION GAP 16.3 MEQ/L (5-15); BILIRUBIN,TOTAL 0.5 mg/dL (0.2-1.3); Calcium 8.3 mg/dL (8.4-10.2); Creatinine 1 1.4 mg/dL (0.66-1.25); EST GLOMERULAR FILTRATION RATE 54.8 ML/MIN; Potassium 5.7 mmol/L (3.5-5.1); Total Protein 7.3 g/dL (6.3-8.2)
[2021-10-22] MEDS ORDERED: LIPITOR 40MG PO SCH (10:00)
[2021-10-22] MEDS ORDERED: NON-FORMULARY ITEM (Multivitamin W-Minerals/Lutein [Centrum Silver Tablet] 1 EACH Tablet) PO SCH (10:00)
[2021-10-22] MEDS ORDERED: ELIQUIS 2.5 MG TABLET PO SCH (10:00)
[2021-10-22] MEDS ORDERED: NON-FORMULARY ITEM (Glimepiride [Glimepiride] 1 MG Tablet) PO SCH (10:00)
[2021-10-22] MEDS: Toprol-Xl 25MG Tablets PO SCH ×2 (10:48→21:14)
[2021-10-22] MEDS: Glucophage 500 MG PO SCH (10:48)
[2021-10-22] MEDS: ELIQUIS 2.5 MG TABLET PO SCH ×2 (10:48→21:14)
[2021-10-22] MEDS: ENTRESTO 49 MG-51 MG TABLET PO SCH ×2 (10:48→21:13)
[2021-10-22] MEDS: MAG-OX 400 PO SCH ×2 (10:48→21:13)
[2021-10-22] MEDS: Toprol Xl 50 MG PO SCH ×2 (10:48→21:14)
[2021-10-22] MEDS: THERAGRAN MULTIVITAMIN PO SCH (10:48)
[2021-10-22] MEDS: Klor Con PO SCH (10:48)
[2021-10-22] MEDS: Amaryl 2 MG PO SCH (10:49)
[2021-10-22] MEDS: PROTONIX 40 MG IV IV SCH (10:49)
[2021-10-22] MEDS: JARDIANCE PO SCH (10:49)
[2021-10-22] MEDS: ZOCOR 20MG PO SCH (10:52)
[2021-10-22] MEDS: DECADRON 10MG INJ. IV SCH (10:54)
[2021-10-22 12:11] LABS: BAND 3 % (0.0-2.0); Lymphocytes 12 % (24-44); Monocyte 6 % (0.0-12.0); Platelet Estimate DECREASED (NORMAL); Total Cells Counted 100
[2021-10-22] MEDS: IMODIUM 2 MG PO PRN ×2 (13:11→18:11)
[2021-10-22] MEDS: NORCO 5/325 MG PO PRN ×2 (13:11→21:16)
[2021-10-22] MEDS: Metamucil PACKET PO SCH ×2 (14:00→14:53)
[2021-10-22] MEDS: REMDESIVIR 100 MG in Sodium Chloride 100ML MINI-BAG PLUS 100 ML IV SCH (21:12)
[2021-10-22] MEDS: Neurontin PO SCH (21:13)
[2021-10-23 05:22] LABS: Hemoglobin 14.2 g/dL (12.5-18.0); Mean Cell Volume 97.2 fL (78-100); Mean Corpuscular Hemoglobin 30.7 pg (26-32); Mean Corpuscular Hgb Concent. 31.6 g/dL (32-36); Mean Platelet Volume 11.3 fL (7.5-11.0); Platelet Count 114 x10^3/uL (150-450); Red Blood Count 4.63 x10^6/uL (4.1-5.6)
[2021-10-23 05:34] LABS: ANION GAP 13.2 MEQ/L (5-15); BLOOD UREA NITROGEN 26 mg/dL (9-20); CHLORIDE 108 mmol/L (98-107); Calcium 8.3 mg/dL (8.4-10.2); Carbon Dioxide 19 mmol/L (22-30); Creatinine 1 1.29 mg/dL (0.66-1.25); EST GLOMERULAR FILTRATION RATE > 60.0 ML/MIN; Glucose 195 mg/dL (74-106); SODIUM 135 mmol/L (137-145)
[2021-10-23] MEDS: Amaryl 2 MG PO SCH (08:17)
[2021-10-23] MEDS: Glucophage 500 MG PO SCH (08:17)
[2021-10-23] MEDS: VENTOLIN COMMON CANISTER IH SCH ×3 (09:10→19:57)
[2021-10-23] MEDS: DECADRON 10MG INJ. IV SCH (09:55)
[2021-10-23] MEDS: ELIQUIS 2.5 MG TABLET PO SCH ×2 (09:55→21:05)
[2021-10-23] MEDS: PROTONIX 40 MG IV IV SCH (09:56)
[2021-10-23] MEDS: ZOCOR 20MG PO SCH (09:56)
[2021-10-23] MEDS: IMODIUM 2 MG PO PRN (09:56)
[2021-10-23] MEDS: ENTRESTO 49 MG-51 MG TABLET PO SCH ×2 (09:56→21:05)
[2021-10-23] MEDS: Metamucil PACKET PO SCH (09:56)
[2021-10-23] MEDS: JARDIANCE PO SCH (09:57)
[2021-10-23] MEDS: Klor Con PO SCH (09:58)
[2021-10-23] MEDS: MAG-OX 400 PO SCH ×2 (09:58→21:05)
[2021-10-23] MEDS: THERAGRAN MULTIVITAMIN PO SCH (09:59)
[2021-10-23] MEDS: Toprol Xl 50 MG PO SCH (09:59)
[2021-10-23] MEDS: Toprol-Xl 25MG Tablets PO SCH (09:59)
--- NOTE | 2021-10-23 10:20 | PCM.NOTE ---
Date and Time: 10/23/21 1017 Subjective Assessment: patient coughing quite a bit and has some dyspnea, wears oxygen as needed at home. Objective Exam General Appearance: obese Neurologic Exam: alert, oriented x 3 Respiratory Exam: crackles/rales, rhonchi Cardiovascular Exam: regular rate/rhythm, normal heart sounds Gastrointestinal/Abdomen Exam: soft, No tenderness, No mass Extremity Exam: normal inspection, normal range of motion, swelling OBJECTIVE DATA Vital Signs: Vital Signs - 24 hr Temp Pulse Resp BP BP Pulse Ox 10/23/21 09:51 70 12 97 10/23/21 09:23 69 14 97 10/23/21 09:00 12 10/23/21 07:26 96.4 F 67 17 125/71 97 10/23/21 07:00 17 10/23/21 05:47 66 15 95 10/23/21 05:00 20 10/23/21 04:00 98.2 F 64 20 98/66 96 10/23/21 03:00 18 10/23/21 02:00 70 18 95 10/23/21 00:44 20 10/23/21 00:00 98.2 F 80 20 109/67 94 L 10/22/21 23:32 71 97 10/22/21 20:57 20 10/22/21 20:00 97.9 F 70 20 107/66 95 10/22/21 19:38 67 16 97 10/22/21 18:33 20 10/22/21 17:00 98.5 F 68 20 111/66 96 10/22/21 15:00 73 16 97 10/22/21 13:30 12 10/22/21 13:16 73 18 97 10/22/21 11:30 98.8 F 75 18 114/70 94 L Pain Assessment - Last Documented Pain Intensity 0 Pain Scale Used 0-10 Pain Scale Intake and Output: Intake & Output 10/20/21 10/21/21 10/22/21 10/23/21 11:59 11:59 11:59 11:59 Intake Total 1270 960 Output Total 1350 1250 Balance -80 -290 Weight 239.7 kg 238.3 kg Lab Results: Lab Results-Last 24 Hours 10/22/21 10/22/21 10/22/21 Range/Units 04:56 11:44 16:52 WBC (4.0-10.5) x10^3/uL RBC (4.1-5.6) x10^6/uL Hgb (12.5-18.0) g/dL Hct (42-50) % MCV (78-100) fL MCH (26-32) pg MCHC (32-36) g/dL RDW (11.5-14.0) % Plt Count (150-450) x10^3/uL MPV (7.5-11.0) fL Segmented Neutrophils 79 H (36.-66.) % Band Neutrophils 3 H (0.0-2.0) % Lymphocytes (Manual) 12 L (24-44) % Monocytes (Manual) 6 (0.0-12.0) % Platelet Estimate DECREASED (NORMAL) RBC Morphology NORMAL Sodium (137-145) mmol/L Potassium (3.5-5.1) mmol/L Chloride (98-107) mmol/L Carbon Dioxide (22-30) mmol/L Anion Gap (5-15) MEQ/L BUN (9-20) mg/dL Creatinine (0.66-1.25) mg/dL Estimated GFR ML/MIN Glucose (74-106) mg/dL POC Glucometer 191 H 188 H (74 to 106) mg/dL Calcium (8.4-10.2) mg/dL 10/22/21 10/23/21 10/23/21 Range/Units 20:37 05:14 05:14 WBC 4.0 (4.0-10.5) x10^3/uL RBC 4.63 (4.1-5.6) x10^6/uL Hgb 14.2 (12.5-18.0) g/dL Hct 45.0 (42-50) % MCV 97.2 (78-100) fL MCH 30.7 (26-32) pg MCHC 31.6 L (32-36) g/dL RDW 15.0 H (11.5-14.0) % Plt Count 114 L (150-450) x10^3/uL MPV 11.3 H (7.5-11.0) fL Segmented Neutrophils (36.-66.) % Band Neutrophils (0.0-2.0) % Lymphocytes (Manual) (24-44) % Monocytes (Manual) (0.0-12.0) % Platelet Estimate (NORMAL) RBC Morphology Sodium 135 L (137-145) mmol/L Potassium 5.0 (3.5-5.1) mmol/L Chloride 108 H (98-107) mmol/L Carbon Dioxide 19 L (22-30) mmol/L Anion Gap 13.2 (5-15) MEQ/L BUN 26 H (9-20) mg/dL Creatinine 1.29 H (0.66-1.25) mg/dL Estimated GFR > 60.0 ML/MIN Glucose 195 H (74-106) mg/dL POC Glucometer 202 H (74 to 106) mg/dL Calcium 8.3 L (8.4-10.2) mg/dL 10/23/21 Range/Units 06:56 WBC (4.0-10.5) x10^3/uL RBC (4.1-5.6) x10^6/uL Hgb (12.5-18.0) g/dL Hct (42-50) % MCV (78-100) fL MCH (26-32) pg MCHC (32-36) g/dL RDW (11.5-14.0) % Plt Count (150-450) x10^3/uL MPV (7.5-11.0) fL Segmented Neutrophils (36.-66.) % Band Neutrophils (0.0-2.0) % Lymphocytes (Manual) (24-44) % Monocytes (Manual) (0.0-12.0) % Platelet Estimate (NORMAL) RBC Morphology Sodium (137-145) mmol/L Potassium (3.5-5.1) mmol/L Chloride (98-107) mmol/L Carbon Dioxide (22-30) mmol/L Anion Gap (5-15) MEQ/L BUN (9-20) mg/dL Creatinine (0.66-1.25) mg/dL Estimated GFR ML/MIN Glucose (74-106) mg/dL POC Glucometer 181 H (74 to 106) mg/dL Calcium (8.4-10.2) mg/dL Radiology Exams: Radiology Procedures Category Date Time Status CHEST 1 VIEW (PORTABLE) Stat Exams 10/21/21 14:41 Completed Multi-Disciplinary Progress Notes: Multi-Disciplinary Progress Notes 10/22/21 13:15 Case Management Note by Christopher,Zari WESTRIDGE NOT IN NETWORK WITH PATIENT'S INSURANCE Initialized on 10/22/21 13:15 - END OF NOTE Assessment/Plan (1) COVID-19 virus detected Current Visit: Yes Status: Acute Assessment & Plan: continue dexamethasone 6mg IV daily, day 3 of remdesivir today, continue eliquis. with body habitus and underlying lung function patient is a high risk for complications. continue current mangement Code(s): U07.1 - COVID-19 (2) Morbid obesity Current Visit: Yes Status: Acute Code(s): E66.01 - MORBID (SEVERE) OBESITY DUE TO EXCESS CALORIES (3) UTI (urinary tract infection) Current Visit: Yes Status: Acute Assessment & Plan: add rocephin based on gram negative bacteria in urine culture, ID pending. Code(s): N39.0 - URINARY TRACT INFECTION, SITE NOT SPECIFIED
[2021-10-23] MEDS: ROCEPHIN 1 Gm-D5w 50 ml Bag** 1 G/50 ML IVPB IV SCH (10:45)
[2021-10-23] MEDS: NORCO 5/325 MG PO PRN ×2 (13:19→21:05)
[2021-10-23] MEDS: REMDESIVIR 100 MG in Sodium Chloride 100ML MINI-BAG PLUS 100 ML IV SCH (21:05)
[2021-10-23] MEDS: Neurontin PO SCH (21:05)
[2021-10-24] MEDS: VENTOLIN COMMON CANISTER IH SCH ×4 (01:26→21:30)
[2021-10-24] MEDS: Toprol Xl 50 MG PO SCH ×3 (01:57→21:22)
[2021-10-24] MEDS: Toprol-Xl 25MG Tablets PO SCH ×3 (01:58→21:23)
[2021-10-24 06:22] LABS: ALBUMIN 3.2 g/dL (3.5-5.0); ANION GAP 13.3 MEQ/L (5-15); BILIRUBIN,TOTAL 0.4 mg/dL (0.2-1.3); Calcium 8.5 mg/dL (8.4-10.2); Creatinine 1 1.36 mg/dL (0.66-1.25); EST GLOMERULAR FILTRATION RATE 56.6 ML/MIN; Potassium 4.9 mmol/L (3.5-5.1); Total Protein 7.4 g/dL (6.3-8.2)
[2021-10-24] MEDS: Metamucil PACKET PO SCH (08:22)
[2021-10-24] MEDS: PROTONIX 40 MG IV IV SCH (08:22)
[2021-10-24] MEDS: ELIQUIS 2.5 MG TABLET PO SCH ×2 (08:22→21:22)
[2021-10-24] MEDS: Klor Con PO SCH (08:23)
[2021-10-24] MEDS: ENTRESTO 49 MG-51 MG TABLET PO SCH ×2 (08:23→21:23)
[2021-10-24] MEDS: Glucophage 500 MG PO SCH (08:23)
[2021-10-24] MEDS: MAG-OX 400 PO SCH ×2 (08:23→21:23)
[2021-10-24] MEDS: Amaryl 2 MG PO SCH (08:23)
[2021-10-24] MEDS: THERAGRAN MULTIVITAMIN PO SCH (08:24)
[2021-10-24] MEDS: ZOCOR 20MG PO SCH (08:24)
[2021-10-24] MEDS: JARDIANCE PO SCH (08:25)
[2021-10-24] MEDS: ROCEPHIN 1 Gm-D5w 50 ml Bag** 1 G/50 ML IVPB IV SCH (08:27)
[2021-10-24] MEDS: DECADRON 10MG INJ. IV SCH (08:35)
[2021-10-24] MEDS: IMODIUM 2 MG PO PRN (09:06)
--- NOTE | 2021-10-24 09:11 | PCM.NOTE ---
Date and Time: 10/24/21909 Subjective Assessment: patient notes improvement in his breathing and overall well being. no new complaints Objective Exam General Appearance: obese Neurologic Exam: alert, oriented x 3 Respiratory Exam: rhonchi Cardiovascular Exam: regular rate/rhythm, normal heart sounds Gastrointestinal/Abdomen Exam: soft, No tenderness, No mass OBJECTIVE DATA Vital Signs: Vital Signs - 24 hr Temp Pulse Resp BP Pulse Ox 10/24/21 07:10 97.2 F 69 18 122/83 95 10/24/21 06:00 68 13 94 L 10/24/21 05:00 15 10/24/21 04:00 97.1 F 74 15 103/69 94 L 10/24/21 03:00 15 10/24/21 01:51 71 12 94 L 10/24/21 01:27 77 19 97 10/24/21 01:00 12 10/23/21 23:53 97.1 F 72 21 128/66 96 10/23/21 23:00 20 10/23/21 22:00 73 17 92 L 10/23/21 21:00 20 10/23/21 20:00 97.8 F 74 20 98/66 95 10/23/21 19:57 89 19 95 10/23/21 19:00 20 10/23/21 17:41 86 16 95 10/23/21 17:00 16 10/23/21 16:00 97 F 69 16 106/76 95 10/23/21 15:00 15 10/23/21 14:00 68 15 98 10/23/21 13:46 63 18 93 L 10/23/21 12:51 18 10/23/21 12:00 97.8 F 67 18 109/72 95 10/23/21 10:59 16 10/23/21 09:51 70 12 97 10/23/21 09:23 69 14 97 Pain Assessment - Last Documented Pain Intensity 0 Pain Scale Used 0-10 Pain Scale Intake and Output: Intake & Output 10/21/21 10/22/21 10/23/21 10/24/21 11:59 11:59 11:59 11:59 Intake Total 5020 771 5656 Output Total 1350 1250 1725 Balance -80 -290 275 Weight 239.7 kg 238.3 kg 238.5 kg Lab Results: Lab Results-Last 24 Hours 10/23/21 10/23/2110/23/22 Range/Units 05:16 11:31 16:17 Sodium (137-145) mmol/L Potassium (3.5-5.1) mmol/L Chloride (98-107) mmol/L Carbon Dioxide (22-30) mmol/L Anion Gap (5-15) MEQ/L BUN (9-20) mg/dL Creatinine (0.66-1.25) mg/dL Estimated GFR ML/MIN Glucose (74-106) mg/dL POC Glucometer 197 H 189 H (74 to 106) mg/dL Hemoglobin A1c 6.41 H (4.5-6.0) % Calcium (8.4-10.2) mg/dL Total Bilirubin (0.2-1.3) mg/dL AST (17-59) U/L ALT (0-50) U/L Alkaline Phosphatase (38-126) U/L Serum Total Protein (6.3-8.2) g/dL Albumin (3.5-5.0) g/dL 10/23/21 10/24/21 10/24/21 Range/Units 20:41 05:26 06:41 Sodium 137 (137-145) mmol/L Potassium 4.9 (3.5-5.1) mmol/L Chloride 107 (98-107) mmol/L Carbon Dioxide 21 L (22-30) mmol/L Anion Gap 13.3 (5-15) MEQ/L BUN 29 H (9-20) mg/dL Creatinine 1.36 H (0.66-1.25) mg/dL Estimated GFR 56.6 ML/MIN Glucose 175 H (74-106) mg/dL POC Glucometer 259 H 158 H (74 to 106) mg/dL Hemoglobin A1c (4.5-6.0) % Calcium 8.5 (8.4-10.2) mg/dL Total Bilirubin 0.40 (0.2-1.3) mg/dL AST 39 (17-59) U/L ALT 26 (0-50) U/L Alkaline Phosphatase 106 (38-126) U/L Serum Total Protein 7.4 (6.3-8.2) g/dL Albumin 3.2 L (3.5-5.0) g/dL Multi-Disciplinary Progress Notes: Multi-Disciplinary Progress Notes 10/24/21 01:36 Respiratory Note by Wild Calvillo PT STATED THAT FOR THE LAST TWO NIGHTS HE HAS FELT THO THE PRESSURE OF 18CM H2O IN HIS CPAP WAS TOO MUCH. HE STATED THAT WHEN HE TOLD US THAT WAS WHAT HIS PRESSURE WAS, HE MAY HAVE BEEN MISTAKEN. I LOOKED TO SEE IF WE HAD A COPY OF HIS SLEEP STUDY ON FILE IN [facility]'S OFFICE BUT I DID NOT FIND IT. I LOWERED PT PRESSURE FROM 18CM TO 16CM H2O. PT STATED THAT IT WAS MORE COMFORTABLE SO I LEFT IT ON THAT PRESSURE FOR THE NIGHT. Initialized on 10/24/21 01:36 - END OF NOTE Assessment/Plan (1) COVID-19 virus detected Current Visit: Yes Status: Acute Assessment & Plan: remdesivir day 4 today, continue supportive care with dexamethasone. seems to be improving clinically, currently not requiring oxygen Code(s): U07.1 - COVID-19 (2) UTI (urinary tract infection) Current Visit: Yes Status: Acute Assessment & Plan: e coli sens to rocephin, today is day #2 of treatment Code(s): N39.0 - URINARY TRACT INFECTION, SITE NOT SPECIFIED (3) Morbid obesity Current Visit: Yes Status: Acute Code(s): E66.01 - MORBID (SEVERE) OBESITY DUE TO EXCESS CALORIES
[2021-10-24] MEDS: NORCO 5/325 MG PO PRN (14:15)
[2021-10-24] MEDS: Neurontin PO SCH (21:22)
[2021-10-24] MEDS: REMDESIVIR 100 MG in Sodium Chloride 100ML MINI-BAG PLUS 100 ML IV SCH (21:26)
[2021-10-25 04:47] LABS: Absolute Neutrophil Ct (ANC) 5.29 x10^3/uL (1.4-6.9); Basophil (Absolute #) 0 x10^3/uL (0-0.4); Eosinophil (Absolute #) 0 x10^3/uL (0-0.5); Hematocrit 44.3 % (42-50); Hemoglobin 14.1 g/dL (12.5-18.0); Lymphocyte (Absolute #) 0.37 x10^3/uL (1.0-4.6); Lymphocytes % 6.1 % (24.0-44.0); Mean Cell Volume 97.1 fL (78-100); Mean Corpuscular Hemoglobin 30.9 pg (26-32); Mean Corpuscular Hgb Concent. 31.8 g/dL (32-36); Mean Platelet Volume 11.4 fL (7.5-11.0); Monocyte (Absolute #) 0.38 x10^3/uL (0.0-1.3); Monocytes % 6.3 % (0.0-12.0); Neutrophil % 87.1 % (36.0-66.0); Platelet Count 115 x10^3/uL (150-450); Red Blood Count 4.56 x10^6/uL (4.1-5.6); White Blood Count 6.1 x10^3/uL (4.0-10.5)
[2021-10-25 05:29] LABS: ANION GAP 12.2 MEQ/L (5-15); Calcium 8.6 mg/dL (8.4-10.2); Creatinine 1 1.47 mg/dL (0.66-1.25); EST GLOMERULAR FILTRATION RATE 51.8 ML/MIN
[2021-10-25 06:16] LABS: Slide Review 1 YES
[2021-10-25] MEDS: VENTOLIN COMMON CANISTER IH SCH ×2 (07:05→13:27)
[2021-10-25] MEDS: THERAGRAN MULTIVITAMIN PO SCH (08:09)
[2021-10-25] MEDS: ROCEPHIN 1 Gm-D5w 50 ml Bag** 1 G/50 ML IVPB IV SCH (08:09)
[2021-10-25] MEDS: MAG-OX 400 PO SCH (08:09)
[2021-10-25] MEDS: ENTRESTO 49 MG-51 MG TABLET PO SCH (08:09)
[2021-10-25] MEDS: Klor Con PO SCH (08:09)
[2021-10-25] MEDS: Toprol Xl 50 MG PO SCH (08:09)
[2021-10-25] MEDS: ZOCOR 20MG PO SCH (08:09)
[2021-10-25] MEDS: Toprol-Xl 25MG Tablets PO SCH (08:09)
[2021-10-25] MEDS: ELIQUIS 2.5 MG TABLET PO SCH (08:09)
[2021-10-25] MEDS: JARDIANCE PO SCH (08:10)
[2021-10-25] MEDS: PROTONIX 40 MG IV IV SCH (08:10)
[2021-10-25] MEDS: Metamucil PACKET PO SCH ×2 (08:10→08:32)
[2021-10-25] MEDS: Glucophage 500 MG PO SCH (08:10)
[2021-10-25] MEDS: Amaryl 2 MG PO SCH (08:10)
[2021-10-25] MEDS: DECADRON 10MG INJ. IV SCH (08:15)
[2021-10-25 13:44] VITALS: O2SAT 93
[2021-10-25] MEDS: REMDESIVIR 100 MG in Sodium Chloride 100ML MINI-BAG PLUS 100 ML IV SCH (15:01)
[2021-10-25 17:10] VITALS: BP 119/65; PULSE 71
--- NOTE | 2021-11-08 10:57 | PCM.SSS ---
History of Present Illness - Chief Complaint Chief Complaint: COVID-19, CHEST PAIN Date: 10/25/21 History of Present Illness: is a 61 year old male. - Review of Systems Constitutional: Weakness, No Fever, No Chills Eyes: No Symptoms Ears, Nose, & Throat: No Symptoms Respiratory: Cough, Short Of Breath Cardiac: Chest Pain, No Edema, No Syncope Abdominal/Gastrointestinal: No Abdominal Pain, No Nausea, No Vomiting, No Diarrhea Genitourinary Symptoms: No Dysuria Musculoskeletal: No Back Pain, No Neck Pain Skin: No Rash Neurological: No Dizziness, No Focal Weakness, No Sensory Changes Psychological: No Symptoms Endocrine: No Symptoms Hematologic/Lymphatic: No Symptoms Immunological/Allergic: No Symptoms Medications & Allergies Home Medications: Home Medication List Apixaban [Eliquis] 5 mg PO BID 10/05/18 [History Confirmed 10/28/21] Atorvastatin Calcium [Lipitor] 40 mg PO DAILY 10/05/18 [History Confirmed 10/28/21] Multivitamin W-Minerals/Lutein [Centrum Silver Tablet] 1 each PO DAILY 10/05/18 [History Confirmed 10/28/21] Potassium Chloride Tab* [Klor Con] 20 meq PO DAILY 05/17/19 [History Confirmed 10/28/21] Empagliflozin [Jardiance] 25 mg PO DAILY 10/21/21 [History Confirmed 10/28/21] Gabapentin [Neurontin ] 800 mg PO QHS 10/21/21 [History Confirmed 10/28/21] Glimepiride 1 mg PO DAILY 10/21/21 [History Confirmed 10/28/21] Magnesium Oxide 400 mg [Mag-Ox 400] 400 mg PO BID 10/21/21 [History Confirmed 10/28/21] Metformin HCl 500 mg [Glucophage 500 MG] 500 mg PO BID 10/21/21 [History Confirmed 10/28/21] Metoprolol Succinate 25 mg Xl* [Toprol-Xl 25MG Tablets] 25 mg PO BID 10/21/21 [History Confirmed 10/28/21] Metoprolol Succinate 50 mg [Toprol Xl 50 MG] 50 mg PO BID 10/21/21 [History Confirmed 10/28/21] Sacubitril/Valsartan [Entresto 49 mg-51 mg Tablet] 1 each PO BID 10/21/21 [History Confirmed 10/28/21] Torsemide 100 mg PO BID 10/21/21 [History Confirmed 10/28/21] Amox Tr/Potass Clav. 875 mg [Augmentin 875-125 Tablet] 875 mg PO BID 10 Days #20 tablet 11/02/21 [Rx] Azithromycin [Azithromycin 250 mg Pack] 250 mg PO UD #6 tablet 11/02/21 [Rx] Allergies/Adverse Reactions: Allergies Allergy/AdvReac Type Severity Reaction Status Date / Time daptomycin Allergy Verified 10/21/21 19:23 Sulfa (Sulfonamide Allergy Rash Verified 10/21/21 14:32 Antibiotics) - Past Medical History Past Medical History: Yes Neurological History: No Pertinent History ENT History: No Pertinent History Cardiac History: Congestive Heart Failure, High Cholesterol, Hypertension, Myocardial Infarction (NM), Peripheral Vascular Disease, Other Respiratory History: Asthma, Sleep Apnea Endocrine Medical History: Diabetes Type II Musculoskelatal History: Osteoarthritis GI Medical History: No Pertinent History History: Renal Disease Pyscho-Social History: No Pertinent History Male Reproductive Disorders: No Pertinent History Comment: USES 2L O2 WITH CPAP AND OCCASIONALLY DURING THE DAY. HAS RESCUE INHALER. LYMPHEDEMA. HAS DEFIB/PACEMAKER WITH MOST RECENT PLACEMENT 03/07 - Past Surgical History Past Surgical History: Yes Cardiac History: Internal Defibrillator, Pacemaker GI Surgical History: Cholecystectomy Genitourinary Surgical Hx: No Pertinent History Musculskeletal Surgical Hx: No Pertinent History Male Surgical History: No Pertinent History Other Surgical History: dialysis port placement and removal - Social History Smoking Status: Former smoker Exposure to second hand smoke: No Alcohol: None Drug Use: none - Physical Exam General Appearance: no apparent distress, alert, obese Neurologic Exam: alert, oriented x 3, cooperative, normal mood/affect, nml cerebellar function, nml station & gait, sensation nml, No motor deficits Eye Exam: PERRL/EOMI, eyes nml inspection Ears, Nose, Throat Exam: normal ENT inspection, pharynx normal, moist mucous membranes Neck Exam: normal inspection, non-tender, supple, full range of motion Respiratory Exam: lungs clear, diminished breath sounds, No respiratory distress Cardiovascular Exam: regular rate/rhythm, normal heart sounds, normal peripheral pulses, edema Gastrointestinal/Abdomen Exam: soft, normal bowel sounds, No tenderness, No mass Back Exam: normal inspection, normal range of motion, No CVA tenderness, No vertebral tenderness Extremity Exam: normal inspection, normal range of motion, pelvis stable, pedal edema, swelling (marked lymphatic changes in the extremities noted in severely morbidly obese patient.) Skin Exam: normal color, warm, dry, No rash Lymphatic Exam: No adenopathy Results - Labs Lab/Micro Results: Microbiology 10/21/21 15:15 Blood Culture Gram Stain - Final Blood Not Reportable Blood Culture - Final NO GROWTH 10/21/21 15:10 Blood Culture - Final Blood NO GROWTH 10/21/21 05:30 Urine Culture - Final Clean Catch Midstream Escherichia Coli Assessment/Plan (1) Acute renal injury Status: Acute Code(s): N17.9 - ACUTE KIDNEY FAILURE, UNSPECIFIED (2) COVID-19 virus detected Status: Acute Code(s): U07.1 - COVID-19 (3) Chest pain, rule out acute myocardial infarction Status: Acute Code(s): R07.9 - CHEST PAIN, UNSPECIFIED (4) Elephantiasis (nonfilarial) Status: Acute Code(s): I89.0 - LYMPHEDEMA, NOT ELSEWHERE CLASSIFIED (5) Lymphedema associated with obesity Status: Acute Code(s): I89.0 - LYMPHEDEMA, NOT ELSEWHERE CLASSIFIED; E66.9 - OBESITY, UNSPECIFIED (6) Shortness of breath Status: Acute Code(s): R06.02 - SHORTNESS OF BREATH Hospital Summary - Hospital Course Hospital Course: Pt. admitted for chest pain rule out, this was subsequently ruled out. Pt. notes he still felt weak and did not feel as if he could go home. Pt. felt like he would like to stay in the hospital, knowing this patient well, I recommended NH placement for physical rehab, pt. was reluctant but agreed to this plan although he subsequently changed his mind refusing to go to NH. Pt. was continued on steroids and remdesivir with therapy in the hospital initiated as we waited for insurance approval. Pt. slowly improved to his baseline other than still with general weakness and no longer wanting NH for continued therapy pt. was stable and no further improvement could be gained from hospitalization pt. was discharged to home for self care. - Vitals & Intake/Output Vital Signs: Vital Signs Temperature 97.7 F 10/25/21 16:00 Pulse Rate 71 10/25/21 16:00 Respiratory Rate 18 10/25/21 16:00 Blood Pressure 119/65 10/25/21 16:00 O2 Sat by Pulse Oximetry 93 L 10/25/21 16:00 - Lab Result Diagrams: 10/25/21 04:40 10/25/21 04:40 Micro Results-Entire Visit: Microbiology 10/21/21 15:15 Blood Culture Gram Stain - Final Blood Not Reportable Blood Culture - Final NO GROWTH 10/21/21 15:10 Blood Culture - Final Blood NO GROWTH 10/21/21 05:30 Urine Culture - Final Clean Catch Midstream Escherichia Coli - Procedures and Test Procedures and Tests throughout Hospitalization: Therapy Orders & Screens 10/21/21 15:55 Respiratory Therapy Assessment DAILY Comment: 10/21/21 18:34 Oxygen Nasal Cannula 2 lpm Comment: 10/21/21 21:58 BiPap/CPAP ROUTINE Comment: [id number] AT NIGHT Diagnosis: Chest pain rule out acute NM Respiratory Therapy Assessment DAILY Comment: Diagnosis: Chest pain rule out acute NM 10/22/21 11:05 PT Eval & Treat (MD Order) ONCE Reason for Eval:: RETIREMENT PLACEMENT Diagnosis: cp Covid - Discharge Disposition: Home, Self-Care Condition: Stable Prescriptions: Continue Multivitamin W-Minerals/Lutein [Centrum Silver Tablet] 1 each PO DAILY Atorvastatin Calcium [Lipitor] 40 mg PO DAILY Apixaban [Eliquis] 5 mg PO BID Potassium Chloride Tab* [Klor Con] 20 meq PO DAILY Metoprolol Succinate 50 mg [Toprol Xl 50 MG] 50 mg PO BID Empagliflozin [Jardiance] 25 mg PO DAILY Metoprolol Succinate 25 mg Xl* [Toprol-Xl 25MG Tablets] 25 mg PO BID Metformin HCl 500 mg [Glucophage 500 MG] 500 mg PO BID Glimepiride 1 mg PO DAILY Torsemide 100 mg PO BID Magnesium Oxide 400 mg [Mag-Ox 400] 400 mg PO BID Sacubitril/Valsartan [Entresto 49 mg-51 mg Tablet] 1 each PO BID Gabapentin [Neurontin ] 800 mg PO QHS No Action Amox Tr/Potass Clav. 875 mg [Augmentin 875-125 Tablet] 875 mg PO BID 10 Days #20 tablet Azithromycin [Azithromycin 250 mg Pack] 250 mg PO UD #6 tablet Instructions: COVID-19 (DC), Pulse Oximetry Additional Instructions: A REFERRAL WAS FAXED TO [facility]. THEY WILL CONTACT YOU TO ARRANGE A VISIT ONCE THEY GET APPROVAL FROM YOUR INSURANCE. THEIR PHONE NUMBER IS [phone] Follow up with: SASCHA RICKS MD [Primary Care Provider] - 11/02/21 11:00 am (NEED TO CALL OFFICE UPON ARRIVAL AND WEAR A MASK INTO THE OFFICE) Forms: Discharge Instructions
== END 2021-10-25 16:37 | disposition home or self-care (01) | DRG 682 ==
LOC: ED 14:19 → MED SURG 18:29 → OBSVTOIN 10-23 10:15
PROVIDERS: ADMIT Family Medicine; ATTEND Family Medicine
DX: N17.9 Acute kidney failure, unspecified (principal); U07.1 COVID-19; N39.0 Urinary tract infection, site not specified; I11.0 Hypertensive heart disease with heart failure; I50.9 Heart failure, unspecified; I89.0 Lymphedema, not elsewhere classified; R07.9 Chest pain, unspecified; I48.91 Unspecified atrial fibrillation; Z20.828 Contact with and (suspected) exposure to other viral communicable diseases; Z99.81 Dependence on supplemental oxygen; E66.01 Morbid (severe) obesity due to excess calories; Z79.899 Other long term (current) drug therapy; Z79.01 Long term (current) use of anticoagulants
CPT/HCPCS: 0241U; 36415; 71045; 80048; 80053; 81015; 82947; 83036; 83605; 83735; 83880; 84145; 84484; 85025; 85027; 87040; 87077; 87086; 87186; 93005; 93268; 94640; 94660; 94762; 97161; 99284; J0248; J0696; J1100; J2270; A9270-GY; G0378